=== PATIENT | male | born 1995 | race Caucasian/White ===

== ENCOUNTER → 2016-11-29 | Outpatient (CLI) | payer BC ==
[2016-11-29 15:04] LABS: CHLORIDE,CL 106 mmol/L (98-110); SODIUM,NA 141 mmol/L (136-146)
== END ==
LOC: MW.CHIM 14:22
PROVIDERS: ATTEND Internal Medicine
DX: N50.89 Other specified disorders of the male genital organs (principal)
CPT/HCPCS: 36415; 80048; 85025

== ENCOUNTER → 2016-12-03 | Outpatient (CLI) | payer BC ==
--- NOTE | 2016-12-03 14:01 | US ---
EXAMINATION: Scrotal duplex ultrasound HISTORY: Palpable lump COMPARISON: None TECHNIQUE: Grayscale, color Doppler, and spectral Doppler images obtained of the scrotum. FINDINGS: Both the left and right testicles are normal in size, contour, and echogenicity without a focal mass. There is normal color and spectral Doppler flow bilaterally. No hydroceles or varicocele s. No scrotal wall thickening. IMPRESSION: Normal scrotal duplex ultrasound.
== END ==
LOC: MW.US 12:55
PROVIDERS: ATTEND Internal Medicine
DX: N50.89 Other specified disorders of the male genital organs (principal)
CPT/HCPCS: 76870; 76870-26; 93976; 93976-26